=== PATIENT | female | born 1945 | race Caucasian/White ===

== ENCOUNTER 2017-02-23 16:41 | Inpatient (IN) | payer MEDICARE ==
[~2017-02-23] VITALS: Ht 165.1 cm; Wt 66.8 kg
[~2017-02-23 16:41] MED LIST: ALDACTONE 25MG25 M1 PO; ALDACTONE 25MG25 MG PO; ALENDRONATE SOD70 M1 PO; AMITRIPTYLINE H25 M1 PO; ASPIRIN 32325 MG/TAB PO; ASPIRIN 81M81 MG/TA2 PO; CALCIUM + D 5001 TAB PO; CIPRO 500MG TA500 MG PO; COLACE 100100 MG/CAP PO; COZAAR100 MG PO; FERROUS SU325 MG/TAB PO; FORT1000TA PO; FORTAMET500 MG PO; FOSAMAX 70MG TA70 MG PO; GLIPIZIDE5 MG PO; GLUCOPHAGE1000 MG PO; GLYCOLAX17 GM/PACK PO; LASIX 40MG TABL40 MG PO; LOPRESSOR 550 MG/TAB PO; LOPRESSOR100 MG PO; LORTAB 10/500 51 TAB PO; LOW DOSE ASPIRI81 MG PO; METFORMIN1000 MG PO; MINOCYCLIN100 MG/CAP PO; NIACIN500 M3 PO; NIACIN500 M4 PO; NITROQUICK0.4 MG SL; NORCO 325 MG-7.1 TAB PO; NORVASC 5MG5 MG/TAB PO; OMEGA-3 FISH1200 MG PO; ONGLYZA5 MG PO; PAXIL 20MG20 MG PO; PRAVACHOL 20MG20 MG PO; PRAVACHOL20 MG PO; PREDNISONE10 MG PO; PRINIVIL40 MG PO; TOPROL XL100 MG PO; TYLENOL PM EXTR1 TA1 PO; VITAMIN D32000 I1 PO; ZOCOR 20MG20 MG PO; ZOCOR 40MG40 MG PO
[2017-02-23 17:52] LABS: HEMOGLOBIN 12.4 g/dl (12.5-16.0); MEAN CELL VOLUME 89 fl (80.0-100.0); MEAN CORPUSCULAR HEMOGLOBIN 30 pg (27.0-31.0); MEAN CORPUSCULAR HGB CONC 34 g/dl (33.0-37.0); MEAN PLATELET VOLUME 10.3 fl (7.4-10.4); PLATELET COUNT 240 K/mm3 (130-400); RED BLOOD COUNT 4.08 M/mm3 (4.10-5.30); REDCELL DISTRIBUTION WIDTH-CV 14.1 % (11.5-14.5)
[2017-02-23 18:01] LABS: HEMATOCRIT 36.1 % (37.0-47.0)
[2017-02-23 18:02] LABS: ADD PATHOLOGY DIFF REVIEW NO
[2017-02-23 18:03] LABS: ADJUSTED CALCIUM 9.8 mg/dL (8.4-10.2); BILIRUBIN,TOTAL 1.1 mg/dL (0.0-1.0); CALCIUM 9.8 mg/dL (8.4-10.2); CREATININE, serum 1.35 mg/dL (0.52-1.25); POTASSIUM 4.2 mmol/L (3.4-5.0)
[2017-02-23 18:09] LABS: BAND 7 % (0-10); EOSINOPHIL 1 % (0-4); NEUTROPHILS 79 % (42.0-75.2); TOTAL CELLS COUNTED 100
[2017-02-23 18:11] LABS: ROULEAUX 1+
[2017-02-23] MEDS ORDERED: ALEVE 220MG220 MG PO (18:11)
[2017-02-23 18:35] LABS: C-REACTIVE PROTEIN 41.1 mg/dL (0.0-0.9)
[2017-02-23 20:29] VITALS: BP 154/57; PULSE 80; TEMP 98.5
[2017-02-23 23:39] VITALS: BP 118/52; PULSE 81; TEMP 99.6
[2017-02-24 04:01] VITALS: BP 103/52; PULSE 65; TEMP 98.1
[2017-02-24 07:51] LABS: MEAN CELL VOLUME 90 fl (80.0-100.0); MEAN CORPUSCULAR HGB CONC 34 g/dl (33.0-37.0); MEAN PLATELET VOLUME 10.4 fl (7.4-10.4); PLATELET COUNT 233 K/mm3 (130-400); RED BLOOD COUNT 3.72 M/mm3 (4.10-5.30); WHITE BLOOD COUNT 9.7 K/mm3 (4.8-10.8)
[2017-02-24 07:56] VITALS: BP 110/48; PULSE 73; TEMP 98.4
[2017-02-24 07:57] LABS: HEMATOCRIT 33.4 % (37.0-47.0); HEMOGLOBIN 11.5 g/dl (12.5-16.0); MEAN CORPUSCULAR HEMOGLOBIN 31 pg (27.0-31.0)
[2017-02-24 07:58] LABS: ADD PATHOLOGY DIFF REVIEW NO
[2017-02-24 08:03] LABS: CREATININE, serum 1.45 mg/dL (0.52-1.25); POTASSIUM 3.8 mmol/L (3.4-5.0)
[2017-02-24 11:22] VITALS: BP 120/42; PULSE 73; TEMP 98.2
[2017-02-24 13:41] LABS: BAND 24 % (0-10); BASOPHIL 1 % (0-2); EOSINOPHIL 13 % (0-4); NEUTROPHILS 55 % (42.0-75.2); PLATELET ESTIMATE NORMAL (NORMAL); TOTAL CELLS COUNTED 100
[2017-02-24 13:42] LABS: DOHLE BODIES PRESENT; TOXIC GRANULATION PRESENT
[2017-02-24 16:17] VITALS: BP 131/47; PULSE 86; TEMP 98.7
[2017-02-24 20:42] VITALS: BP 134/50; PULSE 66; TEMP 98.5
[2017-02-25 00:54] VITALS: BP 107/33; PULSE 69; TEMP 98.5
[2017-02-25 04:56] VITALS: BP 115/33; PULSE 67; TEMP 98.5
[2017-02-25 07:53] VITALS: BP 134/67; PULSE 69; TEMP 98.9
[2017-02-25 11:40] VITALS: BP 125/64; PULSE 66; TEMP 98.6
[2017-02-25 15:35] VITALS: BP 141/80; PULSE 70; TEMP 98.1
[2017-02-25 20:44] VITALS: BP 160/65; PULSE 92; TEMP 98.8
[2017-02-26] VITALS (14 sets, daily range): BP systolic 105–173; BP diastolic 48–77; PULSE 70–88; TEMP 97.8–98.7
[2017-02-27] VITALS (7 sets, daily range): BP systolic 148–185; BP diastolic 57–86; PULSE 75–86; TEMP 97.6–98.4
[2017-02-27] MEDS ORDERED: NORCO 325 MG-51 TAB PO (15:11)
[2017-02-28 03:32] VITALS: BP 150/98; PULSE 71; TEMP 97.7
[2017-02-28 08:45] VITALS: BP 179/61; PULSE 69; TEMP 97.8
[2017-02-28] MEDS ORDERED: LEVAQUIN 5500 MG/101 IV ×2 (12:18→14:19)
== END 2017-02-28 13:00 | disposition home or self-care (01) | DRG 464 ==
LOC: COL.ER 16:41 → MEDICAL 18:28
PROVIDERS: Emergency Medicine; Nurse Practitioner Family
PROC: 0H9LXZX Drainage of Left Lower Leg Skin, External Approach, Diagnostic (ICD-10-PCS; principal; 2017-02-25)
PROC: 0JBP0ZZ Excision of Left Lower Leg Subcutaneous Tissue and Fascia, Open Approach (ICD-10-PCS; 2017-02-26)
DX: T87.44 Infection of amputation stump, left lower extremity (principal); M86.162 Other acute osteomyelitis, left tibia and fibula; N17.9 Acute kidney failure, unspecified; Z66 Do not resuscitate; E11.69 Type 2 diabetes mellitus with other specified complication; E11.42 Type 2 diabetes mellitus with diabetic polyneuropathy; I10 Essential (primary) hypertension; Z89.512 Acquired absence of left leg below knee; Z89.511 Acquired absence of right leg below knee; B95.1 Streptococcus, group B, as the cause of diseases classified elsewhere; L27.1 Localized skin eruption due to drugs and medicaments taken internally; T36.8X5A Adverse effect of other systemic antibiotics, initial encounter
CPT/HCPCS: 99231-AI; 99233-AI; A9585; C1751; J0690; J0696; J1100; J1200; J1644; J2405; J2704; J3010; J3370; J7030; J7050; J7120

== ENCOUNTER → 2017-03-19 | Outpatient (REF) ==
[~2017-03-19] MED LIST changes: +ALEVE 220MG220 MG PO; +LEVAQUIN 5500 MG/101 IV; +NORCO 325 MG-51 TAB PO
== END ==
LOC: ZAIV 06:10
DX: Z01.89 Encounter for other specified special examinations (principal)

== ENCOUNTER 2017-04-11 13:00 | Outpatient (RCR) | payer MEDICARE ==
[2017-03-03 11:45] VITALS: BP 168/62; PULSE 58; TEMP 98.1
[~2017-04-11] VITALS: Ht 165.1 cm; Wt 61.0 kg
== END 2017-04-11 14:03 | disposition home or self-care (01) ==
LOC: EUO 13:00
DX: M86.9 Osteomyelitis, unspecified (principal); L03.116 Cellulitis of left lower limb; Z89.512 Acquired absence of left leg below knee
CPT/HCPCS: J1644; J1956

== ENCOUNTER → 2017-05-06 | Outpatient (CLI) | payer MEDICARE | LOC: WCC 10:02 | DX: Z09 Encounter for follow-up examination after completed treatment for conditions other than malignant neoplasm (principal); Z89.512 Acquired absence of left leg below knee; Z89.511 Acquired absence of right leg below knee | CPT/HCPCS: 17716; 27517; A6207; A6212; G0463 ==

== ENCOUNTER → 2017-05-15 | Outpatient (CLI) | payer MEDICARE | LOC: WCC 10:24 | DX: E11.622 Type 2 diabetes mellitus with other skin ulcer (principal); L97.929 Non-pressure chronic ulcer of unspecified part of left lower leg with unspecified severity; L97.919 Non-pressure chronic ulcer of unspecified part of right lower leg with unspecified severity; Z89.512 Acquired absence of left leg below knee; Z89.511 Acquired absence of right leg below knee | CPT/HCPCS: 17716; 27517; A6207; A6212; G0463 ==

== ENCOUNTER → 2017-05-23 | Outpatient (CLI) | payer MEDICARE | LOC: WCC 08:28 | DX: E11.622 Type 2 diabetes mellitus with other skin ulcer (principal); L97.929 Non-pressure chronic ulcer of unspecified part of left lower leg with unspecified severity; L97.819 Non-pressure chronic ulcer of other part of right lower leg with unspecified severity; Z89.511 Acquired absence of right leg below knee; Z89.512 Acquired absence of left leg below knee | CPT/HCPCS: 17717; 27517; A6207; A6212; G0463 ==

== ENCOUNTER → 2017-05-23 | Outpatient (CLI) | payer MEDICARE | LOC: ZCOL.LAB 14:16 | DX: E11.621 Type 2 diabetes mellitus with foot ulcer (principal) ==

== ENCOUNTER → 2017-05-26 | Outpatient (CLI) | payer MEDICARE | LOC: WCC 11:01 | DX: L97.829 Non-pressure chronic ulcer of other part of left lower leg with unspecified severity (principal); L97.819 Non-pressure chronic ulcer of other part of right lower leg with unspecified severity; E11.9 Type 2 diabetes mellitus without complications; Z89.612 Acquired absence of left leg above knee; Z89.611 Acquired absence of right leg above knee | CPT/HCPCS: 17716; 17717; 27517; A6207; A6212; G0463 ==

== ENCOUNTER → 2017-05-30 | Outpatient (CLI) | payer MEDICARE | LOC: WCC 10:22 | DX: Z01.89 Encounter for other specified special examinations (principal) ==

== ENCOUNTER → 2017-06-06 | Outpatient (CLI) | payer MEDICARE | LOC: WCC 11:00 | DX: Z01.89 Encounter for other specified special examinations (principal) ==

== ENCOUNTER → 2017-06-12 | Outpatient (CLI) | payer MEDICARE | LOC: WCC 12:14 | DX: E11.622 Type 2 diabetes mellitus with other skin ulcer (principal); L97.819 Non-pressure chronic ulcer of other part of right lower leg with unspecified severity; L97.829 Non-pressure chronic ulcer of other part of left lower leg with unspecified severity; Z89.512 Acquired absence of left leg below knee; Z89.511 Acquired absence of right leg below knee | CPT/HCPCS: 16847; 17717; A6212; G0463 ==

== ENCOUNTER → 2017-06-17 | Outpatient (CLI) | payer MEDICARE | LOC: WCC 09:57 | DX: L97.829 Non-pressure chronic ulcer of other part of left lower leg with unspecified severity (principal); E11.9 Type 2 diabetes mellitus without complications; Z89.512 Acquired absence of left leg below knee; Z89.511 Acquired absence of right leg below knee | CPT/HCPCS: 13919; 17716; 17717; 27510; 27515; A6197; A6212; G0463 ==

== ENCOUNTER → 2017-06-27 | Outpatient (CLI) | payer MEDICARE | LOC: WCC 08:18 | DX: E11.622 Type 2 diabetes mellitus with other skin ulcer (principal); L97.929 Non-pressure chronic ulcer of unspecified part of left lower leg with unspecified severity; Z89.512 Acquired absence of left leg below knee; Z89.511 Acquired absence of right leg below knee | CPT/HCPCS: 17716; 17717; 27510; A6197; A6212; G0463 ==

== ENCOUNTER → 2017-07-10 | Outpatient (CLI) | payer MEDICARE | LOC: WCC 08:35 | DX: E11.622 Type 2 diabetes mellitus with other skin ulcer (principal); L98.499 Non-pressure chronic ulcer of skin of other sites with unspecified severity; Z89.512 Acquired absence of left leg below knee; Z89.511 Acquired absence of right leg below knee | CPT/HCPCS: G0463 ==

== ENCOUNTER → 2017-08-20 | Outpatient (CLI) | payer MEDICARE | LOC: MC.RAD 09:36 | DX: Z12.31 Encounter for screening mammogram for malignant neoplasm of breast (principal) ==

== ENCOUNTER → 2018-08-20 | Outpatient (CLI) | payer MEDICARE | LOC: MC.RAD 07:33 | DX: Z12.31 Encounter for screening mammogram for malignant neoplasm of breast (principal) ==

== ENCOUNTER → 2019-09-03 | Outpatient (CLI) | payer MEDICARE | LOC: MC.RAD 08:23 | DX: Z12.31 Encounter for screening mammogram for malignant neoplasm of breast (principal) ==

== ENCOUNTER → 2019-10-29 | Outpatient (CLI) | payer MEDICARE | LOC: ZCOL.LAB 15:14 | DX: I10 Essential (primary) hypertension (principal); E11.9 Type 2 diabetes mellitus without complications; L89.90 Pressure ulcer of unspecified site, unspecified stage; Z89.512 Acquired absence of left leg below knee ==

== ENCOUNTER → 2019-12-14 | Outpatient (CLI) | payer MEDICARE | LOC: ZCOL.LAB 14:31 | DX: E11.9 Type 2 diabetes mellitus without complications (principal); L89.890 Pressure ulcer of other site, unstageable ==

== ENCOUNTER → 2020-06-28 | Outpatient (CLI) | payer MEDICARE | LOC: ZCOL.LAB 16:21 | DX: T14.8XXA Other injury of unspecified body region, initial encounter (principal) ==

== ENCOUNTER 2021-04-04 14:16 | Emergency (ER) | payer MEDICARE ==
[~2021-04-04] VITALS: Ht 160 cm; Wt 59.1 kg
[~2021-04-04 14:16] MED LIST changes: -ZOCOR 20MG20 MG PO
[2021-04-04] MEDS ORDERED: DOXYCYCLINE 50M50 MG PO (14:41)
[2021-04-04 15:00] VITALS: TEMP 98.1
[2021-04-04 15:24] LABS: BASO % 0.2 % (0.0-2.0); GRAN # 9.9 (1.4-6.5); GRAN % 82.7 % (42.2-75.2); HEMOGLOBIN 12.4 g/dl (12.5-16.0); LYMPH # 1.5 (1.2-3.4); LYMPH % 12.4 % (20.0-51.0); MEAN CELL VOLUME 87 fl (80.0-100.0); MEAN CORPUSCULAR HEMOGLOBIN 31 pg (27.0-31.0); MEAN CORPUSCULAR HGB CONC 36 g/dl (33.0-37.0); MEAN PLATELET VOLUME 9.4 fl (7.4-10.4); MONO # 0.5 (0.1-0.6); MONO % 3.8 % (1.7-9.3); PLATELET COUNT 293 K/mm3 (130-400); RED BLOOD COUNT 4.02 M/mm3 (4.10-5.30); REDCELL DISTRIBUTION WIDTH-CV 14.6 % (11.5-14.5)
[2021-04-04 15:29] LABS: HEMATOCRIT 34.8 % (37.0-47.0)
[2021-04-04 15:38] LABS: COLLECTION METHOD CATHETER
[2021-04-04 15:45] LABS: ALBUMIN 4.5 gm/dL (3.5-5.0); BILIRUBIN,TOTAL 0.7 mg/dL (0.0-1.0); CALCIUM 9.1 mg/dL (8.4-10.2); CREATININE, serum 0.87 (0.52-1.25); POTASSIUM 4.8 mmol/L (3.4-5.0); TOTAL PROTEIN 7.2 gm/dL (6.4-8.2)
[2021-04-04 15:55] LABS: TROPONIN-I 0.037 ng/mL (0.000-0.035)
[2021-04-04 16:11] LABS: MUCOUS Present /lpf; PH 6 (5-8); SQUAMOUS EPITHELIAL 0-2 /hpf; URINE APPEARANCE Cloudy; URINE BACTERIA Many /hpf; URINE BILIRUBIN Negative (NEGATIVE); URINE BLOOD 2+ (NEGATIVE); URINE COLOR Yellow; URINE GLUCOSE 1+ (NEGATIVE); URINE KETONE Trace (NEGATIVE); URINE LEUKOCYTE ESTERASE Trace (NEGATIVE); URINE NITRATE Negative (NEGATIVE); URINE PROTEIN(semi-quant) 2+ (NEGATIVE); URINE UROBILINOGEN Negative (NEGATIVE)
[2021-04-04 16:11] LABS: TSH w REFLEX 1.43 uIU/mL (0.465-4.680)
[2021-04-04 17:05] VITALS: BP 145/87; PULSE 78
== END 2021-04-04 17:33 | disposition short-term general hospital (02) ==
LOC: COL.ER 14:16
PROVIDERS: Emergency Medicine
DX: R74.8 Abnormal levels of other serum enzymes (principal); E87.8 Other disorders of electrolyte and fluid balance, not elsewhere classified; E87.1 Hypo-osmolality and hyponatremia; M62.82 Rhabdomyolysis; R65.10 Systemic inflammatory response syndrome (SIRS) of non-infectious origin without acute organ dysfunction; F10.229 Alcohol dependence with intoxication, unspecified; E11.9 Type 2 diabetes mellitus without complications; E78.5 Hyperlipidemia, unspecified; I10 Essential (primary) hypertension; Z79.899 Other long term (current) drug therapy; Z20.822 Contact with and (suspected) exposure to COVID-19
CPT/HCPCS: J1956; J7030

== ENCOUNTER 2021-06-03 20:14 | Inpatient (IN) | payer MEDICARE ==
[~2021-06-03] VITALS: Ht 162.6 cm; Wt 56.0 kg
[~2021-06-03 20:14] MED LIST changes: +DOXYCYCLINE 50M50 MG PO
[2021-06-03 20:46] LABS: BASO % 0.1 % (0.0-2.0); EOS % 0.1 % (0-4.0); GRAN # 12.1 (1.4-6.5); GRAN % 76.4 % (42.2-75.2); HEMATOCRIT 35.1 % (37.0-47.0); HEMOGLOBIN 12.8 g/dl (12.5-16.0); LYMPH # 2.3 (1.2-3.4); LYMPH % 14.3 % (20.0-51.0); MEAN CELL VOLUME 86 fl (80.0-100.0); MEAN CORPUSCULAR HEMOGLOBIN 31 pg (27.0-31.0); MEAN CORPUSCULAR HGB CONC 37 g/dl (33.0-37.0); MONO # 1.3 (0.1-0.6); MONO % 8.3 % (1.7-9.3); PLATELET COUNT 264 K/mm3 (130-400); RED BLOOD COUNT 4.07 M/mm3 (4.10-5.30); REDCELL DISTRIBUTION WIDTH-CV 13.2 % (11.5-14.5)
[2021-06-03 21:05] LABS: ALBUMIN 4.6 gm/dL (3.5-5.0); BILIRUBIN,TOTAL 1.2 mg/dL (0.0-1.0); CALCIUM 8.8 mg/dL (8.4-10.2); CREATININE, serum 0.94 (0.52-1.25); POTASSIUM 3.2 mmol/L (3.4-5.0); TOTAL PROTEIN 7.2 gm/dL (6.4-8.2)
[2021-06-04] VITALS (290 sets, daily range): BP systolic 103–163; BP diastolic 52–107; PULSE 56–69; TEMP 97.8–98.5; O2SAT 70–100
[2021-06-04] MEDS ORDERED: MONODOX100 PO (00:11)
[2021-06-04 02:02] LABS: TROPONIN-I 0.017 ng/mL (0.000-0.035)
[2021-06-04 02:08] LABS: MAGNESIUM 1.5 mg/dL (1.6-2.3)
[2021-06-04 03:50] LABS: CALCIUM 8.3 mg/dL (8.4-10.2); CREATININE, serum 0.96 (0.52-1.25); POTASSIUM 4.3 mmol/L (3.4-5.0)
--- NOTE | 2021-06-04 04:35 | NUR ---
PT UP TO ICU FLOOR AT APPROXIMATELY 0245HOURS, PT A/OX4, 02 ROOM AIR, INDWELLING LEE INSERTED, MEDICATIONS ADMINISTERED ORDERED. MANGNESIUM CURRENTLY INFUSING TO LFA PERIPHERAL LINE. N/S ON HOLD UNTIL 0530 HOURS.SODIUM LAB CHECKS Q1HR, PATIENT INSTRUCTED ON POC AND ORIENTED TO ROOM. THIS NURSE WILL CONTINUE TO MONITOR.
[2021-06-04 04:40] LABS: MUCOUS Present /lpf; PH 6 (5-8); SQUAMOUS EPITHELIAL None Seen /hpf; URINE APPEARANCE Clear; URINE BACTERIA Rare /hpf; URINE BILIRUBIN Negative (NEGATIVE); URINE BLOOD Negative (NEGATIVE); URINE COLOR Yellow; URINE GLUCOSE 3+ (NEGATIVE); URINE KETONE Trace (NEGATIVE); URINE LEUKOCYTE ESTERASE Negative (NEGATIVE); URINE NITRATE Negative (NEGATIVE); URINE PROTEIN(semi-quant) 3+ (NEGATIVE); URINE UROBILINOGEN Negative (NEGATIVE)
[2021-06-04 04:57] LABS: COLLECTION METHOD CLEAN CATCH
[2021-06-04 05:22] LABS: BASO % 0.1 % (0.0-2.0); EOS % 0.1 % (0-4.0); GRAN # 11.9 (1.4-6.5); GRAN % 82.1 % (42.2-75.2); HEMOGLOBIN 11.6 g/dl (12.5-16.0); LYMPH # 1.1 (1.2-3.4); LYMPH % 7.6 % (20.0-51.0); MEAN CELL VOLUME 87 fl (80.0-100.0); MEAN CORPUSCULAR HEMOGLOBIN 31 pg (27.0-31.0); MEAN CORPUSCULAR HGB CONC 36 g/dl (33.0-37.0); MONO # 1.4 (0.1-0.6); MONO % 9.3 % (1.7-9.3); PLATELET COUNT 197 K/mm3 (130-400); RED BLOOD COUNT 3.75 M/mm3 (4.10-5.30); REDCELL DISTRIBUTION WIDTH-CV 13.1 % (11.5-14.5)
[2021-06-04 05:24] LABS: HEMATOCRIT 32.7 % (37.0-47.0)
[2021-06-04 05:31] LABS: ALBUMIN 3.7 gm/dL (3.5-5.0); BILIRUBIN,TOTAL 1.3 mg/dL (0.0-1.0); CALCIUM 8.2 mg/dL (8.4-10.2); CREATININE, serum 0.88 (0.52-1.25); TOTAL PROTEIN 6.1 gm/dL (6.4-8.2)
--- NOTE | 2021-06-04 07:00 | NUR ---
PT A/OX4, 02 ROOM AIR, N/S INFUSING AT 40ML/HR, MAGNESIUM INFUSING AT 12.5ML/HR. LEE PATENT RADHA AND CLOUDY URINE NOTED, I&O RECORDED. THIS NURSE SPOKE TO PT'S DAUGHTER DON CONCERNING PT'S STATUS. PT HAS CALL LIGHT WITHIN REACH, PT EXPRESSES NO ADDITONAL NEEDS AT THIS TIME. CALL LIGHT WITHIN REACH.
--- NOTE | 2021-06-04 10:34 | NUR ---
Pt refusing PICC Line insertion - OK with phlebotomy performing venipunctures q2hr. Pt states "I dont plan on being here that long, it seems drastic to place PICC line. And last time I got bad blisters under the PICC line".
--- NOTE | 2021-06-04 16:36 | NUR ---
fire crew worker met with patient to discuss discharge planning. Patient states that she lives alone and that her recently. Worker and patient discussed patient's alcohol intake and patient states "i will quit". Worker and patient discussed the feces found on her when the neighbor checked on her. Patient stated that she was unaware of the feces and that she cleaned herself after having diarrhea. Patient declines worker's offer to assist with a referral to mental health counseling for grief and loss. Patient states she will return home and that her sister will be staying with her for 2 weeks. Patient's primary care provider is Dr Miguelina Lou and patient denies any difficulty obtaining any of her prescriptions. Patient states her son transports her once monthly to wound care appoints at the [facility] emergency department wound care clinic. Worker will continue to follow and assist with securing a safe discharge plan.
--- NOTE | 2021-06-04 22:59 | NUR ---
Shift assessment completed. Patient alert and oriented. Patient denies any pain or discomfort. Denies SOB/dyspnea, N/V, or diarrhea. Patient currently on CIWA protocol and scores 1. Edouard cathether patent and in place. Call light within reach. Will continue to monitor.
[2021-06-05] VITALS (7 sets, daily range): BP systolic 110–153; BP diastolic 50–68; PULSE 53–72; TEMP 98–98.9
[2021-06-05 05:27] LABS: BASO % 0.1 % (0.0-2.0); EOS % 0.1 % (0-4.0); GRAN # 7.5 (1.4-6.5); GRAN % 78.2 % (42.2-75.2); HEMOGLOBIN 11.2 g/dl (12.5-16.0); LYMPH # 1.3 (1.2-3.4); LYMPH % 13.6 % (20.0-51.0); MEAN CELL VOLUME 90 fl (80.0-100.0); MEAN CORPUSCULAR HEMOGLOBIN 31 pg (27.0-31.0); MEAN CORPUSCULAR HGB CONC 35 g/dl (33.0-37.0); MONO # 0.7 (0.1-0.6); MONO % 7.5 % (1.7-9.3); PLATELET COUNT 163 K/mm3 (130-400); RED BLOOD COUNT 3.59 M/mm3 (4.10-5.30); REDCELL DISTRIBUTION WIDTH-CV 13.5 % (11.5-14.5)
[2021-06-05 05:28] LABS: HEMATOCRIT 32.4 % (37.0-47.0)
--- NOTE | 2021-06-05 06:40 | NUR ---
Patient's daughter Eliana called this morning and expressed her frustration that no one ever called her and notified of her mom moved to medical floor from ICU yesterday. Patient's daughter Eliana said she would like to get a phone call from MD and RN for updates after 2Pm today. Will endorse to day shift nurse.
--- NOTE | 2021-06-05 07:03 | NUR ---
Pt. progressing with plan of care. Pt. alert and able to answer questions. Pt. sitting upright, denies needs at this time. Call light and belongings in reach, safety maintained.
--- NOTE | 2021-06-05 10:03 | NUR ---
Pt. progressing w/ plan of care. Pt was able to work with physical therapy and ambulate in the room. Edouard cath draining clear, yellow urine. Pt had a small BM using the toilet. Pt. able to make needs known. Pt. back to bed now. Bed alarm on for safety.
--- NOTE | 2021-06-05 10:07 | NUR ---
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 will do MRSA nares screen today. Coleman Bowling RN, Infection PRevention
--- NOTE | 2021-06-05 14:49 | NUR ---
Bilateral amputations noted to be red and dry. Pt. was scratching at them, she reports she is followed at the wound clinic once per month. Dr. Bryan notified via telephone, physician requesting to monitor redness at this time and to leave the skin alone if it is not bothering the patient. Pt. encouraged not to scratch the skin.
--- NOTE | 2021-06-05 18:58 | NUR ---
Bedside shift report complete. Oncoming RN Marianna notified of plan of care. Pt.'s family member at bedside, updates provided. The hospitalist Dr. Fraser notified pt.'s daughter would like to be updated today or tomorrow about plan of care. Dr. Oh notified this RN the pt.'s daughter Eliana did not answer. The phone number to reach Eliana is [phone].
--- NOTE | 2021-06-05 19:49 | NUR ---
Awake, alert, oriented x 3, verbal with clear responses, non impulsive, assessment completed at this time, reviewed medical history and plan of care, verbalized understanding, contact isolation for hx: mrsa in wounds.
[2021-06-06 00:35] VITALS: BP 132/52; PULSE 64; TEMP 98.3
[2021-06-06 04:21] VITALS: BP 120/57; PULSE 57; TEMP 98
[2021-06-06 07:20] VITALS: BP 146/59; PULSE 61; TEMP 97.7
[2021-06-06 08:19] LABS: CALCIUM 8.5 mg/dL (8.4-10.2); CREATININE, serum 0.74 (0.52-1.25); POTASSIUM 3.3 mmol/L (3.4-5.0)
--- NOTE | 2021-06-06 11:03 | NUR ---
Scheduled medications given. Shift assessment preformed. Patient A&O. Scoring a 1 on CIWA scale. 3 wounds located on left stump noted. Patient on contact precautions for a history of MRSA in wounds. VSS. Patient denies any pain, discomfort, SOA, chest pain, or further needs at this time. Call light in reach. Fall precautions in place.
[2021-06-06] MEDS ORDERED: MULTIPLE VITAMI1 TA5 PO (11:46)
[2021-06-06] MEDS ORDERED: THIAMINE 1100 MG/TAB PO (11:47)
[2021-06-06] MEDS ORDERED: FOLIC ACID 11 MG/TA1 PO (11:47)
[2021-06-06] MEDS ORDERED: K-DUR20 MEQ PO (11:49)
[2021-06-06 11:53] VITALS: BP 135/54; PULSE 59; TEMP 97.6
--- NOTE | 2021-06-06 12:11 | NUR ---
PT is recommending home. SW attended clinical rounds. The hospitalist is ready to d/c the patient today. The patient confirms that she is returning home. The hospitalist discussed home health services. The patient declined services. SW then followed up with the patient and informed her of home health's benefits. The patient still declined home health. She reports that her sister, Carol, and her daughter will be coming down from [place] on Friday. She states that her sister will be staying with her for two weeks. She reports that she will have a ride home today. SW discussed treatment options again for alcohol treatment. The patient declined treatment and resources. She had no other questions or concerns for DEJAN. DEJAN made an APS report. Intake ID#[id number]. No additional needs at this time.
--- NOTE | 2021-06-06 15:57 | NUR ---
Patient deemed fit for discharge. IV DC'd, catheter intact, no signs of phlebitis. Patient A&O. VSS. Patient's daughter called to voice her concerns about patient's discharge. Daughter was very upset and wanted to speak with hospital administration regarding the discharge decision. Premix Operator Concentrate, Doctor Birch, and social worker psychiatric notified. Premix Operator Concentrate spoke with patient regarding decision. Patient stated that she feels comfortable going home and that she would like us not to contact her daughter regarding this decision. Discharge education/instructions given. Patient denies any questions, concerns, pain, discomfort, or further needs at this time. Patient escorted from building in wheelchair by [facility] Staff. Family to transport home.
== END 2021-06-06 16:00 | disposition home or self-care (01) | DRG 917 ==
LOC: COL.ER 20:14 → ICU 06-04 00:13 → MEDICAL 06-04 00:13 → ICU 06-04 03:01 → MEDICAL 06-04 19:28
PROVIDERS: Personal Emergency Response Attendant; Physician Assistant; ADMIT Internal Medicine
DX: T51.91XA Toxic effect of unspecified alcohol, accidental (unintentional), initial encounter (principal); G93.41 Metabolic encephalopathy; E87.1 Hypo-osmolality and hyponatremia; F10.29 Alcohol dependence with unspecified alcohol-induced disorder; E87.2 Acidosis; E87.6 Hypokalemia; E78.5 Hyperlipidemia, unspecified; K70.10 Alcoholic hepatitis without ascites; E11.9 Type 2 diabetes mellitus without complications; D72.829 Elevated white blood cell count, unspecified; I10 Essential (primary) hypertension; Z86.14 Personal history of Methicillin resistant Staphylococcus aureus infection; Z89.512 Acquired absence of left leg below knee; Z89.511 Acquired absence of right leg below knee
CPT/HCPCS: 99223-AI; 99232-AI; 99239; A4314; J1650; J1815; J3475; J3480; J7030; J7131

== ENCOUNTER 2021-07-06 08:29 | Inpatient (IN) | payer MEDICARE ==
[~2021-07-06] VITALS: Ht 177.8 cm; Wt 58.6 kg
[~2021-07-06 08:29] MED LIST changes: +FOLIC ACID 11 MG/TA1 PO; +K-DUR20 MEQ PO; +MONODOX100 PO; +MULTIPLE VITAMI1 TA5 PO; +THIAMINE 1100 MG/TAB PO
[2021-07-06 09:17] LABS: BASO % 0.2 % (0.0-2.0); GRAN # 13.2 (1.4-6.5); GRAN % 83.7 % (42.2-75.2); HEMOGLOBIN 10.4 g/dl (12.5-16.0); LYMPH % 6.3 % (20.0-51.0); MEAN CELL VOLUME 92 fl (80.0-100.0); MEAN CORPUSCULAR HEMOGLOBIN 32 pg (27.0-31.0); MEAN CORPUSCULAR HGB CONC 35 g/dl (33.0-37.0); MEAN PLATELET VOLUME 9.2 fl (7.4-10.4); MONO # 1.4 (0.1-0.6); PLATELET COUNT 263 K/mm3 (130-400); RED BLOOD COUNT 3.26 M/mm3 (4.10-5.30); REDCELL DISTRIBUTION WIDTH-CV 14.2 % (11.5-14.5)
[2021-07-06 09:19] LABS: HEMATOCRIT 30.1 % (37.0-47.0)
[2021-07-06 09:31] LABS: ALBUMIN 4.3 gm/dL (3.5-5.0); BILIRUBIN,TOTAL 1.1 mg/dL (0.0-1.0); CALCIUM 9.3 mg/dL (8.4-10.2); CREATININE, serum 0.85 (0.52-1.25); POTASSIUM 4.4 mmol/L (3.4-5.0); TOTAL PROTEIN 6.9 gm/dL (6.4-8.2)
[2021-07-06] MEDS ORDERED: PRESERVISION1 SGL PO (12:44)
[2021-07-06] MEDS ORDERED: TYLENOL PM EXTR1 TA1 PO (12:45)
[2021-07-06] MEDS ORDERED: ASPIRIN 32325 MG/TAB PO (12:45)
--- NOTE | 2021-07-06 13:00 | NUR ---
Patient arrived to the floor around 1130. She is alert and oriented. Attempting to get her pain under control but had to wait for physician orders. Medications updated in the computer. Her friend is at bedside. Patient denies nausea. Oriented patient to room. No other changes at this time. Call light within reach. Urine from brown sent for UA.
[2021-07-06 13:02] LABS: COLLECTION METHOD CATHETER
[2021-07-06 13:10] LABS: MUCOUS Present /lpf; PH 5 (5-8); SQUAMOUS EPITHELIAL 0-2 /hpf; URINE APPEARANCE Turbid; URINE BACTERIA None Seen /hpf; URINE BILIRUBIN Negative (NEGATIVE); URINE BLOOD Negative (NEGATIVE); URINE COLOR Amber; URINE GLUCOSE Negative (NEGATIVE); URINE KETONE Trace (NEGATIVE); URINE LEUKOCYTE ESTERASE 3+ (NEGATIVE); URINE NITRATE Negative (NEGATIVE); URINE PROTEIN(semi-quant) 2+ (NEGATIVE); URINE UROBILINOGEN Negative (NEGATIVE)
[2021-07-06 13:50] LABS: INR 1.1 (0.8-3.0)
[2021-07-06 16:00] VITALS: BP 126/56; PULSE 67; TEMP 98
[2021-07-06 19:46] VITALS: BP 141/48; PULSE 66; TEMP 97.8
[2021-07-06 23:49] VITALS: BP 145/51; PULSE 58; TEMP 97.8
[2021-07-07] VITALS (10 sets, daily range): BP systolic 84–157; BP diastolic 58–103; PULSE 65–99; TEMP 97.7–98.1
[2021-07-07 07:37] LABS: CALCIUM 9.3 mg/dL (8.4-10.2); CREATININE, serum 0.98 (0.52-1.25); POTASSIUM 4.8 mmol/L (3.4-5.0)
--- NOTE | 2021-07-07 07:40 | NUR ---
Report received from MEENAKSHI Cabral. pT in bed resting, on phone with sister in law, she will be visitor for patient and will return once visiting hours start. Dr. Page and MEENAKSHI Summers from OR to see pt, took pt downstairs for surgery, will continue to monitor.
[2021-07-07 07:43] LABS: BASO % 0.3 % (0.0-2.0); EOS % 0.1 % (0-4.0); GRAN # 11.7 (1.4-6.5); GRAN % 84.2 % (42.2-75.2); LYMPH % 7.5 % (20.0-51.0); MEAN CORPUSCULAR HEMOGLOBIN 32 pg (27.0-31.0); MEAN CORPUSCULAR HGB CONC 32 g/dl (33.0-37.0); MEAN PLATELET VOLUME 10.1 fl (7.4-10.4); MONO % 7.3 % (1.7-9.3); PLATELET COUNT 219 K/mm3 (130-400); RED BLOOD COUNT 3.16 M/mm3 (4.10-5.30); REDCELL DISTRIBUTION WIDTH-CV 14.6 % (11.5-14.5)
[2021-07-07 07:45] LABS: HEMATOCRIT 31.1 % (37.0-47.0); MEAN CELL VOLUME 98 fl (80.0-100.0)
--- NOTE | 2021-07-07 11:55 | NUR ---
READY TO EAT; ORDERED MEAL 55 MINS AGO
--- NOTE | 2021-07-07 13:45 | NUR ---
Plan is to return home independently in [facility], SW met with patient and sister in law in room. Patient gave permission to speak in front of guest. Patient reports that she is independent and doesnot want any supports at home. Patient rpeorts that her PCP is Dr. Palumbo. Patient shares that she uses [facility] for medications in [facility]. Darter is ehr EMR contat Eliana Martell? Patient reports that she has a variety of DME equipement for mobility and uses it. Educated on services from case managment, Will follow.
--- NOTE | 2021-07-07 19:13 | NUR ---
Pt has done well this afternoon and evening, resting in bed, brown draining scant amount of shamir clear urine to DD in bag at side of bed. Eating and drinking well, no complaints of pain at this time. Assisting LLE to straighten as needed everytime I enter room. Resting between disturbances. Bedside shift report given to [facility] nurse who will resume care.
--- NOTE | 2021-07-07 21:20 | NUR ---
held metoprolol due to systolic b/p not within parameters, patient updated
[2021-07-08 00:55] VITALS: BP 127/67; PULSE 86; TEMP 98.2
[2021-07-08 04:16] VITALS: BP 155/60; PULSE 88; TEMP 98.2
--- NOTE | 2021-07-08 04:23 | NUR ---
Awake, alert, oriented x 4, Dressings to L hip c/d/i, ice pack applied, pain managment with Independence with good effect, detox protocol ongoing w/o symptoms, no s/s of hypo/hyper glycmeia, telemetry in use, VS stable, no c/o at this time, call partida w/i reach.
[2021-07-08 07:08] LABS: MEAN CELL VOLUME 100 fl (80.0-100.0); MEAN CORPUSCULAR HGB CONC 31 g/dl (33.0-37.0); PLATELET COUNT 159 K/mm3 (130-400); RED BLOOD COUNT 2.18 M/mm3 (4.10-5.30); REDCELL DISTRIBUTION WIDTH-CV 14.5 % (11.5-14.5)
[2021-07-08 07:18] LABS: CALCIUM 8.6 mg/dL (8.4-10.2); CREATININE, serum 1.12 (0.52-1.25)
[2021-07-08 07:21] LABS: HEMATOCRIT 21.8 % (37.0-47.0); HEMOGLOBIN 6.8 g/dl (12.5-16.0); MEAN CORPUSCULAR HEMOGLOBIN 31 pg (27.0-31.0)
[2021-07-08 09:10] VITALS: BP 148/72; PULSE 87; TEMP 98.1
--- NOTE | 2021-07-08 09:45 | NUR ---
Patient alert and oriented, answers questions appropriately. See assessment. Patient with established RAKA/LBKA, has prosthetic for RLE. Left hip gamma nail site with dressing CDI, no edema noted. Patient has prosthetic for LLE at home, family to bring in. No c/o numbness or tingling to BLE. Edouard catheter in place, patent, draining clear shamir urine. Post op exercises reviewed with patient. No c/o at this time.
[2021-07-08 13:10] VITALS: BP 141/74; PULSE 74; TEMP 98.1
[2021-07-08 13:58] LABS: HEMATOCRIT 22.2 % (37.0-47.0); HEMOGLOBIN 7.4 g/dl (12.5-16.0)
[2021-07-08 16:17] VITALS: BP 122/47; PULSE 73; TEMP 97.7
--- NOTE | 2021-07-08 17:55 | NUR ---
Patient expressed desire to be evaluated for IPR, does not have any desire to go to a penitentiary. Patient states she has everything she needs in place at home and has family members to assist her if needed. Patient relays her daughter is wanting her to go to a penitentiary, and that patient will decline. States she makes her own decisions and does not wish for her daughter to be a part of her decision making. No c/o at this time.
[2021-07-08 20:09] VITALS: BP 131/45; PULSE 76; TEMP 98.2
[2021-07-09] VITALS (13 sets, daily range): BP systolic 113–149; BP diastolic 45–62; PULSE 65–77; TEMP 97.5–98.3
--- NOTE | 2021-07-09 06:08 | NUR ---
RESTING QUIETLY. NO N/V. PRN OXYCODONE AND SCHEDULED TYLENOL FOR LT HIP PAIN. ICE IN USE.
[2021-07-09 06:56] LABS: HEMATOCRIT 22.1 % (37.0-47.0); HEMOGLOBIN 7.1 g/dl (12.5-16.0)
--- NOTE | 2021-07-09 07:00 | NUR ---
Report received from MEENAKSHI Villeda. Pt in bed resting, denies needs, will continue to monitor.
[2021-07-09 07:53] LABS: BASO % 0.3 % (0.0-2.0); EOS # 0.1 (0.0-0.7); EOS % 1.2 % (0-4.0); GRAN # 9.5 (1.4-6.5); GRAN % 78.8 % (42.2-75.2); LYMPH # 1.5 (1.2-3.4); LYMPH % 12.7 % (20.0-51.0); MEAN CELL VOLUME 98 fl (80.0-100.0); MEAN CORPUSCULAR HEMOGLOBIN 31 pg (27.0-31.0); MEAN CORPUSCULAR HGB CONC 32 g/dl (33.0-37.0); MEAN PLATELET VOLUME 9.9 fl (7.4-10.4); MONO # 0.7 (0.1-0.6); MONO % 6.2 % (1.7-9.3); PLATELET COUNT 214 K/mm3 (130-400); RED BLOOD COUNT 2.26 M/mm3 (4.10-5.30); REDCELL DISTRIBUTION WIDTH-CV 14.6 % (11.5-14.5)
[2021-07-09 08:00] LABS: CALCIUM 8.7 mg/dL (8.4-10.2); CREATININE, serum 0.93 (0.52-1.25); POTASSIUM 4.7 mmol/L (3.4-5.0)
--- NOTE | 2021-07-09 09:44 | NUR ---
Assessment charted. PT up to chair with PT/OT. Did well, with their assistance. Requesting PRN pain pill, provided with am meds. Dressings are CDI, will remove today per ordrs. Pt has brown draining shamir clear urine to DD. Denies other needs, carlo lcontinue to monitor.
[2021-07-09 13:48] LABS: RETIC # 0.08 M/mm3 (0.02-0.16); RETIC % 3.5 % (0.5-3.52)
[2021-07-09 14:06] LABS: IRON,SERUM 18 ug/dL (35-150)
[2021-07-09 14:15] LABS: TOTAL IRON BINDING CAPACITY 213 ug/dL (265-497)
[2021-07-09 15:14] LABS: HEMATOCRIT 21.4 % (37.0-47.0); HEMOGLOBIN 6.9 g/dl (12.5-16.0)
--- NOTE | 2021-07-09 16:24 | NUR ---
Called MACIEL Persaud with hospitalist group regarding hemoglobin level, order received for blood transfusion. UPdate provided to Eliana rankin and pt updated. Will continue to monitor and provide blood when available.
--- NOTE | 2021-07-09 17:10 | NUR ---
SW provided referrals to [facility], [facility], [place], and [facility]. Will await screenings *D/C planning to [facility]
--- NOTE | 2021-07-09 18:04 | NUR ---
Started one unit of PRBCs at this time, will remain with pt for first 15 minutes. Educated on s/sx of a tranfusion reaction, pt has done well today, up to chair wiht slide board and PT/OT. resting in bed, removed dressings. Denies needs, will give report to second shift supervisor nurse who will resume care.
--- NOTE | 2021-07-09 19:30 | NUR ---
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 Assessment compmlete. A&Ox3. Denies pain/nausea/shortness of breath. VS remain stable. Currently receiving a unit of blood and tolerating that well. Edouard cath with clear yellow urine. KATHERYN to right LE. Left hip dressing CDI-gauze. Plan of care discussed for this shift to include HS meds/Pain control/calling for questions/concerns. Verbalizes understanding/denies needs. Call light in reach. Will monitor.
--- NOTE | 2021-07-09 21:26 | NUR ---
Blood transfusion complete. VS remained stable. Denied any c/o during transfusion.
--- NOTE | 2021-07-09 23:50 | NUR ---
Called with c/o pain to back/left hip. Rating pain 6/10 on pain scale-described as constant throbbing. Oxycodone given per dr order. Assisted with bed bath. Lotion applied to back. Fresh ice pack to left stump per requests. States she doesnt need it for hip. Lab here to draw 2 hour post transfusion labs. Denies any other questions/concerns. Call light in reach. Will monitor.
[2021-07-10 00:25] LABS: HEMATOCRIT 24.1 % (37.0-47.0); HEMOGLOBIN 8.1 g/dl (12.5-16.0)
[2021-07-10 04:00] VITALS: BP 143/62; PULSE 61
--- NOTE | 2021-07-10 05:06 | NUR ---
Rested well this shift. Received one unit of blood that finished on this shift. Repeat H/H 06/19. Received oxycodone x1 for pain. Denied nausea/shortness of breath. VS stable. Denies current needs. Call light in reach. Will monitor.
[2021-07-10 07:07] LABS: BASO % 0.3 % (0.0-2.0); EOS # 0.3 (0.0-0.7); EOS % 2.1 % (0-4.0); GRAN # 9.5 (1.4-6.5); LYMPH # 1.6 (1.2-3.4); LYMPH % 12.9 % (20.0-51.0); MEAN CELL VOLUME 95 fl (80.0-100.0); MEAN CORPUSCULAR HGB CONC 33 g/dl (33.0-37.0); MEAN PLATELET VOLUME 9.5 fl (7.4-10.4); MONO # 0.9 (0.1-0.6); MONO % 7.4 % (1.7-9.3); PLATELET COUNT 222 K/mm3 (130-400); RED BLOOD COUNT 2.74 M/mm3 (4.10-5.30); REDCELL DISTRIBUTION WIDTH-CV 16.4 % (11.5-14.5)
[2021-07-10 07:16] LABS: CALCIUM 8.5 mg/dL (8.4-10.2); CREATININE, serum 0.8 (0.52-1.25); POTASSIUM 4.7 mmol/L (3.4-5.0)
[2021-07-10 07:17] LABS: HEMOGLOBIN 8.6 g/dl (12.5-16.0); MEAN CORPUSCULAR HEMOGLOBIN 31 pg (27.0-31.0)
[2021-07-10 07:56] VITALS: BP 143/61; PULSE 73; TEMP 98.3
--- NOTE | 2021-07-10 08:48 | NUR ---
Patient in bed resting. Alert and oriented x 3. Assessment complete. States generalized pain 8/10 medications given per orders. Eccymosis noted to left hip, incisions x 2 with edges well approximated. Edouard to DD. Denies further needs at this time.
[2021-07-10] MEDS ORDERED: MONODOX100 PO (09:25)
[2021-07-10] MEDS ORDERED: ZOCOR 40MG40 MG PO (09:25)
[2021-07-10] MEDS ORDERED: ASPIRIN 32325 MG/TAB PO (09:26)
[2021-07-10] MEDS ORDERED: LOPRESSOR 550 MG/TAB PO (09:26)
[2021-07-10] MEDS ORDERED: OSCAL 500 TAB500 MG PO (09:27)
[2021-07-10] MEDS ORDERED: VITAMIN C500 MG PO (09:28)
[2021-07-10] MEDS ORDERED: MILK OF MA400 MG/52 PO (09:28)
[2021-07-10] MEDS ORDERED: NORCO 325 MG-51 TAB PO ×2 (09:29→16:54)
[2021-07-10] MEDS ORDERED: MELATIN 3 MG-11 TAB PO (09:29)
[2021-07-10] MEDS ORDERED: DUO-KAPS1 CAP PO (09:29)
--- NOTE | 2021-07-10 09:50 | NUR ---
Edouard catheter discontinued per orders, patient tolerated procedure well. Denies additional needs at this time.
[2021-07-10 11:54] VITALS: BP 145/51; PULSE 64; TEMP 98
--- NOTE | 2021-07-10 12:10 | NUR ---
script worker met with patient and discussed group home placement needed for safe discharge plan. Patient verbalized agreement with plan. [facility] cannot accept patient due to not bed availibility. Awaiting [facility] screen.
[2021-07-10] MEDS ORDERED: FERRO-TIME325 MG PO (15:13)
--- NOTE | 2021-07-10 15:24 | NUR ---
Contacted HospitalistLucie, patient unable to void after brown removal. Bladder scanned for 350 ml. New order for brown placement, Brown placed per orders, patient tolerated procedure well, pericare provided.
--- NOTE | 2021-07-10 15:29 | NUR ---
[facility] accepted patient to skilled care at [facility] today and arranged their facility wheelchair/van to transport patient at 2:00. SW was told by patient to call and let her dtr know where she was being placed. DEJAN spoke with dtrEliaan, who lives in [place], [place], what time and where patient is transferring to. Orders were faxed to [facility] *D/C to [facility]; Covid results faxed
--- NOTE | 2021-07-10 15:50 | NUR ---
Patient out by wheelchair with [facility] staff in . INT discontinued, catheter tip intact. No further needs at this time.
--- NOTE | 2021-07-10 16:49 | NUR ---
Report to [facility].
== END 2021-07-10 15:50 | DRG 481 ==
LOC: COL.ER 08:29 → SURG 10:56
PROVIDERS: Emergency Medicine; Orthopaedic Surgery; Physician Assistant
PROC: 0QS736Z Reposition Left Upper Femur with Intramedullary Internal Fixation Device, Percutaneous Approach (ICD-10-PCS; principal; 2021-07-07 08:00)
DX: S72.142A Displaced intertrochanteric fracture of left femur, initial encounter for closed fracture (principal); N39.0 Urinary tract infection, site not specified; E22.2 Syndrome of inappropriate secretion of antidiuretic hormone; I25.10 Atherosclerotic heart disease of native coronary artery without angina pectoris; I10 Essential (primary) hypertension; E78.5 Hyperlipidemia, unspecified; E11.42 Type 2 diabetes mellitus with diabetic polyneuropathy; F10.10 Alcohol abuse, uncomplicated; Z66 Do not resuscitate; D64.9 Anemia, unspecified; Z89.512 Acquired absence of left leg below knee; Z89.511 Acquired absence of right leg below knee; Z79.82 Long term (current) use of aspirin; Z88.1 Allergy status to other antibiotic agents; Z88.2 Allergy status to sulfonamides; Z88.0 Allergy status to penicillin; Z79.899 Other long term (current) drug therapy; W19.XXXA Unspecified fall, initial encounter
CPT/HCPCS: 99223-AI; 99232-AI; 99239; A4314; A9284; C1713; J0690; J0696; J1100; J1815; J2250; J2270; J2405; J2704; J3010; J7030; J7050; J7120; P9016

== ENCOUNTER 2021-08-04 08:07 | Observation (INO) | payer MEDICARE ==
[~2021-08-04] VITALS: Ht 162.6 cm; Wt 58.6 kg
[~2021-08-04 08:07] MED LIST changes: +DUO-KAPS1 CAP PO; +FERRO-TIME325 MG PO; +MELATIN 3 MG-11 TAB PO; +MILK OF MA400 MG/52 PO; +OSCAL 500 TAB500 MG PO; +PRESERVISION1 SGL PO; +VITAMIN C500 MG PO
[2021-08-04 08:29] LABS: BASO % 0.1 % (0.0-2.0); EOS # 0.1 K/mm3 (0.0-0.7); EOS % 1.2 % (0-4.0); GRAN # 6.2 K/mm3 (1.4-6.5); GRAN % 75.8 % (42.2-75.2); HEMOGLOBIN 12.7 g/dl (12.5-16.0); LYMPH # 1.5 K/mm3 (1.2-3.4); LYMPH % 17.7 % (20.0-51.0); MEAN CELL VOLUME 89 fl (80.0-100.0); MEAN CORPUSCULAR HEMOGLOBIN 31 pg (27.0-31.0); MEAN CORPUSCULAR HGB CONC 35 g/dl (33.0-37.0); MEAN PLATELET VOLUME 8.4 fl (7.4-10.4); MONO # 0.4 K/mm3 (0.1-0.6); MONO % 4.5 % (1.7-9.3); PLATELET COUNT 301 K/mm3 (130-400); RED BLOOD COUNT 4.12 M/mm3 (4.10-5.30); REDCELL DISTRIBUTION WIDTH-CV 15.3 % (11.5-14.5)
[2021-08-04 08:31] LABS: HEMATOCRIT 36.5 % (37.0-47.0)
[2021-08-04 08:35] LABS: COLLECTION METHOD CATHETER
[2021-08-04 08:39] LABS: PH 8 (5-8); SQUAMOUS EPITHELIAL None Seen /hpf; URINE APPEARANCE Clear; URINE BACTERIA None Seen /hpf; URINE BILIRUBIN Negative (NEGATIVE); URINE BLOOD Negative (NEGATIVE); URINE COLOR Yellow; URINE GLUCOSE 2+ (NEGATIVE); URINE KETONE Trace (NEGATIVE); URINE LEUKOCYTE ESTERASE Negative (NEGATIVE); URINE NITRATE Negative (NEGATIVE); URINE PROTEIN(semi-quant) 2+ (NEGATIVE); URINE RBC 0-2 /hpf; URINE UROBILINOGEN Negative (NEGATIVE)
[2021-08-04 08:48] LABS: ALBUMIN 4.1 gm/dL (3.4-4.8); C-REACTIVE PROTEIN 0.3 mg/dL (0.00-0.50); CALCIUM 9.5 mg/dL (8.4-10.2); CREATININE, serum 0.91 mg/dL (0.57-1.11); POTASSIUM 3.4 mmol/L (3.5-4.5); TOTAL PROTEIN 6.9 gm/dL (6.2-8.1)
[2021-08-04 09:04] LABS: BILIRUBIN,TOTAL 1.1 mg/dL (0.2-1.2)
--- NOTE | 2021-08-04 13:22 | NUR ---
Pt arrives to medical unit rm [id number] from ED, awake and alert, reports feeling hungry and thirsty. IVF's infusing through right forearm site without s/s of complications. This nurse orients pt to room and discusses needing to review orders prior to providing food and drink. Pt verbalizes understanding. Call light in reach.
[2021-08-04] MEDS ORDERED: ASPIRIN 32325 MG/TAB PO (13:55)
[2021-08-04] MEDS ORDERED: TYLENOL PM EXTR1 TA1 PO (13:58)
[2021-08-04] MEDS ORDERED: TYLENOL 500MG500 MG PO (13:59)
[2021-08-04 14:50] VITALS: BP 156/85; PULSE 86; TEMP 98.3
[2021-08-04 16:06] LABS: CALCIUM 9.2 mg/dL (8.4-10.2); CREATININE, serum 0.84 mg/dL (0.57-1.11)
[2021-08-04 16:08] LABS: POTASSIUM 2.6 mmol/L (3.5-4.5)
[2021-08-04 19:49] VITALS: BP 143/68; PULSE 95; TEMP 98.3
[2021-08-04 22:52] LABS: TRICYCLIC ANTIDEPRESS URINE NEGATIVE
[2021-08-05] VITALS (10 sets, daily range): BP systolic 155–173; BP diastolic 63–86; PULSE 73–96; TEMP 98.4–99.1
--- NOTE | 2021-08-05 06:31 | NUR ---
PT HAD UNEVENTFUL NIGHT, PT REMAINS A/OX4, CIWA SCORE T2 THROUGH OUT NIGHT. N/S INFUSING AT 75CC/HR. PT EXPRESSES NO ADDITIONAL NEEDS AT THIS TIME. CALL LIGHT WITHIN REACH.
--- NOTE | 2021-08-05 07:00 | NUR ---
Report with MEENAKSHI Newman. Pt resting in bed, denies pain or needs at this time. IVF's infusing without s/s of complications. Purewick external catheter in place, clear yellow urine present in suction canister. Call light in reach.
--- NOTE | 2021-08-05 08:40 | NUR ---
Assessment complete. Pt awake and alert, oriented x 4. Pt denies pain or needs. Call light in reach.
[2021-08-05 11:01] LABS: CALCIUM 9.4 mg/dL (8.4-10.2); CREATININE, serum 0.81 mg/dL (0.57-1.11); POTASSIUM 3.4 mmol/L (3.5-4.5)
--- NOTE | 2021-08-05 12:57 | NUR ---
SW met with patient to complete intake. Patient states that she lives alone in [place], [place]. Patieht states that she utilizes a WC, walker and a cane. Patient provides that she is independent with ADL's, PCP is Dr. Tom Lou, pharmacy is [facility], and is able to afford her medications. Patient states that her point of contact is her daughter Eliana [phone]. Patient provides that her plan is to return to her home upon DC, and has no concerns in regards to doing so. SW will continue to follow. DC Plan: home
--- NOTE | 2021-08-05 19:05 | NUR ---
Report with MEENAKSHI Harrell. Pt sitting up in bed, denies needs at this time. Call light in reach.
--- NOTE | 2021-08-05 22:08 | NUR ---
PT RESTING IN BED. EVENING MEDICATIONS GIVEN. SHIFT ASSESSMENT COMPLETED. NS RUNNING THROUGH IV. DENIES ANY PAIN OR NEEDS. STATES SHE IS VERY TIRED SINCE SHE HASN'T BEEN GETTING MUCH SLEEP. WILL CONTINUE TO MONITOR.
[2021-08-06 00:26] VITALS: BP 175/65; PULSE 66; TEMP 98.4
[2021-08-06 01:56] VITALS: BP 170/67; PULSE 66; TEMP 98.3
[2021-08-06 04:51] VITALS: BP 187/77; PULSE 72; TEMP 97.9
[2021-08-06 06:26] VITALS: BP 123/64; PULSE 81; TEMP 98.7
--- NOTE | 2021-08-06 06:28 | NUR ---
PT HAD A RESTFUL NIGHT. PT HAD A FEW LOOSE STOOLS. PUREWICK WAS USED FOR BLADDER INCONTINENCE. DENIES ANY NEEDS. EAGER TO GO HOME. WILL CONTINUE TO MONITOR.
[2021-08-06 07:53] LABS: CALCIUM 9.2 mg/dL (8.4-10.2); CREATININE, serum 0.77 mg/dL (0.57-1.11); MAGNESIUM 1.8 mg/dL (1.6-2.6); POTASSIUM 4.1 mmol/L (3.5-4.5)
--- NOTE | 2021-08-06 08:41 | NUR ---
Pt awake upon entry, no C/O pain at this time, talkative. Shift assessment complete, left Pt call light in reach, bed in lowest position.
[2021-08-06] MEDS ORDERED: FOLIC ACID 11 MG/TA1 PO (09:07)
[2021-08-06] MEDS ORDERED: DUO-KAPS1 CAP PO (09:07)
[2021-08-06] MEDS ORDERED: THIAMINE 1100 MG/TAB PO (09:07)
--- NOTE | 2021-08-06 09:41 | NUR ---
Initial visit; Patient thanked Asphalt Layer for offering comfort and prayer. Asphalt Layer wished patient well and God's blessings.
--- NOTE | 2021-08-06 11:05 | NUR ---
Pt discharged to home. Discussed discharge information with Pt, answered questions. Escorted Pt to entrance, assisted into vehicle. Pt left with family via private transportation.
--- NOTE | 2021-08-06 12:58 | NUR ---
Emergency Medicine Physician attended clinical rounds with the team and patient to discharge home today. DEJAN and RNAmira ALMEIDA met with patient to present FRITZ form as she was downgraded to observation status. Patient verbalized understanding and provided signature. SW placed form in chart and provided copy to patient. Patient advised she does not feel she needs Home Health at this time. Patient reports she was discharged from [facility] recently and also declined HH at that time as well. Discharge Plan: Home
== END 2021-08-06 11:07 | disposition home or self-care (01) ==
LOC: COL.ER 08:07 → MEDICAL 09:18
PROVIDERS: Family Medicine; Internal Medicine; Physician Assistant; ADMIT Student in an Organized Health Care Education/Training Program
DX: R50.9 Fever, unspecified (principal); E11.9 Type 2 diabetes mellitus without complications; E87.1 Hypo-osmolality and hyponatremia; F10.10 Alcohol abuse, uncomplicated; E87.6 Hypokalemia; Z20.822 Contact with and (suspected) exposure to COVID-19; Z66 Do not resuscitate; I25.10 Atherosclerotic heart disease of native coronary artery without angina pectoris; I10 Essential (primary) hypertension; E78.5 Hyperlipidemia, unspecified; Z89.512 Acquired absence of left leg below knee; Z89.611 Acquired absence of right leg above knee; Z79.82 Long term (current) use of aspirin; Z79.899 Other long term (current) drug therapy; Z90.49 Acquired absence of other specified parts of digestive tract
CPT/HCPCS: G0378; J0360; J1650; J3475; J7030; J7120

== ENCOUNTER 2021-10-06 05:03 | Emergency (ER) | payer MEDICARE ==
[~2021-10-06] VITALS: Ht 162.6 cm; Wt 57.7 kg
[~2021-10-06 05:03] MED LIST changes: +TYLENOL 500MG500 MG PO
[2021-10-06 05:04] VITALS: TEMP 99.5
[2021-10-06 12:53] VITALS: BP 147/87; PULSE 74
== END 2021-10-06 13:46 | disposition home or self-care (01) ==
LOC: COL.ER 05:03
DX: U07.1 COVID-19 (principal); I10 Essential (primary) hypertension; Z79.899 Other long term (current) drug therapy
CPT/HCPCS: M0243; Q0244